=== PATIENT | female | born 1965 | race Caucasian/White ===

== ENCOUNTER 2017-02-08 10:25 | Day surgery (SDC) | payer BC ==
[2017-02-08] MEDS ORDERED: FENTANYL PF 100MCG/2ML VIAL IV ONE (10:26)
[2017-02-08] MEDS ORDERED: PROPOFOL 10 MG/ML VIAL IV ONE (10:26)
[2017-02-08] MEDS ORDERED: LIDOCAINE 2% MDV (20MG/ML) 20ML VIAL IV ONE (10:26)
--- NOTE | 2017-02-08 15:11 | Operative Note ---
DATE OF SURGERY: 02/08/2017 OPERATION: COLONOSCOPY to the cecum and terminal ileum with biopsy. INDICATION: Iron deficiency anemia, rule out primary colon pathology. ANESTHESIA: Intravenous sedation was administered by the department of anesthesiology and included Diprivan titrated to effect. PROCEDURE: Following informed consent from this alert individual including a discussion of the risks and benefits of the procedure and an opportunity for the patient to ask questions, the patient was in the left lateral decubitus position. A digital rectal examination was performed. No abnormalities were noted. Following this, the Olympus [id number] video colonoscope was inserted into the rectum without resistance. The distal rectal mucosa was inflamed with hyperemia and some friable mucosa. No large ulcerations were noted. No polyps were seen. The endoscope was then advanced up through the bowel to the level of the cecum without much difficulty. Throughout the bowel, the mucosa otherwise was unremarkable without ulcerations, erosions noted. The mucosal pattern was normal with normal folds and distensibility. The cecum was well defined by noting the appendiceal orifice and ileocecal valve. The terminal ileum was cannulated for approximately 10 cm and found to be completely normal. In the cecum, the colonoscope was retroflexed and no changes were noted. From the cecum, the colonoscope was then slowly withdrawn back through the bowel, reexamining the mucosa upon withdrawal. Again the mucosa was normal until the distal rectum was reached. There it was noted to have a somewhat hyperemic appearance and for this reason, biopsies were taken from the distal rectum. Small internal hemorrhoids were also noted. The endoscope was straightened and removed. The patient tolerated the procedure well and was returned to the recovery area in stable condition. IMPRESSION: 1. Normal terminal ileum. 2. Very mild distal proctitis with a friable mucosa. 3. Small internal hemorrhoids. RECOMMENDATIONS: Further recommendations will be forthcoming pending results of biopsy obtained today. Followup will also be with Dr. Pinedo. As always, thank you for allowing me to participate in the care of your patient. CC: Familia PENN
--- NOTE | 2017-02-08 15:11 | Operative Note ---
DATE OF SURGERY: 02/08/2017 OPERATION: ESOPHAGOGASTRODUODENOSCOPY with multiple biopsies. INDICATION: Iron deficiency anemia. HISTORY: The patient was informed while trying to donate platelets that her blood count was low and she was, in fact, low on iron. Hemoglobin was 10.7 and ferritin was 18.9 one month ago. She presents today for both upper and lower endoscopy. ANESTHESIA: Intravenous sedation was administered by the department of anesthesiology and included Diprivan titrated to effect. PROCEDURE: Following informed consent from this alert individual, including a discussion of the risks and benefits of the procedure and an opportunity for the patient to ask questions, the patient was in the left lateral decubitus position. The Olympus [id number] video endoscope was inserted into the esophagus without resistance. The proximal esophagus had a normal appearance with normal folds and distensibility. The mid esophagus likewise was free from changes. The distal esophageal segment demonstrated severe ulcerations circumferentially around the distal 3-4 cm of the esophagus with markedly friable spontaneously bleeding mucosa. Below this was a small 2-3 cm hiatal hernia sac which was free from mucosal changes. The subdiaphragmatic stomach was entered and found to be normal. Pylorus was patent. Duodenal bulb, sweep, and descending duodenum were examined in a serial fashion and found to be unremarkable. The endoscope was then drawn back into the body of the stomach. Retroflexion accomplished following air insufflation again revealed a hiatal hernia. The endoscope was then straightened. Sample biopsies were taken from the duodenum from the duodenal bulb and second portion of the duodenum to evaluate for possible celiac sprue and malabsorption. A second set of biopsies was taken upon withdrawal from the distal esophageal segment which again was extremely friable and ulcerated. The mid and proximal esophagus were normal. The endoscope was removed. The patient tolerated the procedure well and was returned to the recovery area in stable condition. IMPRESSION: 1. Severely ulcerated distal esophagitis as described above, biopsies taken. 2. Small hiatal hernia. 3. Biopsies taken from a normal-appearing duodenum. RECOMMENDATION: The patient will be started on Prilosec 20 mg twice daily. She should have recheck endoscopy in 8-10 weeks to assess healing. Further recommendations forthcoming pending results of biopsy. Colonoscopy will also be performed at this time. As always, thank you for allowing me to participate in the care of your patient. CC: HECTOR AVENDAÑO D.O. DEXTER
== END 2017-02-08 13:10 | disposition home or self-care (01) ==
LOC: HOP 10:25
PROVIDERS: ATTEND Internal Medicine Gastroenterology
DX: D50.9 Iron deficiency anemia, unspecified (principal); F32.9 Major depressive disorder, single episode, unspecified; K62.89 Other specified diseases of anus and rectum; K64.8 Other hemorrhoids; K22.11 Ulcer of esophagus with bleeding; K44.9 Diaphragmatic hernia without obstruction or gangrene
CPT/HCPCS: 45380; 43235; 00810; J3010

== ENCOUNTER 2017-04-19 08:01 | Day surgery (SDC) | payer BC ==
[2017-04-19] MEDS ORDERED: FENTANYL PF 100MCG/2ML VIAL IV ONE (08:02)
[2017-04-19] MEDS ORDERED: PROPOFOL 10 MG/ML VIAL IV ONE (08:02)
[2017-04-19] MEDS ORDERED: LIDOCAINE 2% MDV (20MG/ML) 20ML VIAL IV ONE (08:02)
--- NOTE | 2017-04-19 13:10 | Operative Note ---
DATE OF SURGERY: 04/19/2017 OPERATION: ESOPHAGOGASTRODUODENOSCOPY with multiple biopsies. INDICATION: Previously noted endoscopy with esophageal ulcerations. The patient returns at this time to assess healing. Clinically she is improved. ANESTHESIA: Intravenous sedation was administered by the department of anesthesiology and included Diprivan titrated to effect. PROCEDURE: Following informed consent from this alert individual, including a discussion of the risks and benefits of the procedure and an opportunity for the patient to ask questions, the patient was in the left lateral decubitus position. The Olympus [id number] video endoscope was inserted into the esophagus without resistance. The proximal esophagus had a normal appearance with normal folds and distensibility. The mid esophagus likewise was free from changes. At the squamocolumnar junction, there was inflammatory change noted with some superficial erosion and erythema but the ulcerations had significantly improved from previous endoscopy. Biopsies were ultimately taken from the GE junction. There was a 2.5 cm hiatal hernia noted as well which was free from mucosal changes. Subdiaphragmatic stomach was entered and found to be normal. The pylorus was patent. The duodenal bulb, sweep and descending duodenum were examined in a serial fashion and found to be normal. The instrument was then withdrawn back into the body of the stomach. Retroflexion accomplished following air insufflation failed to demonstrate any additional changes except for the hiatal hernia. The endoscope was then straightened and withdrawn. Again, biopsies were taken from the GE junction. After this, the endoscope was then withdrawn back through an otherwise normal esophagus and removed from the patient. She tolerated the procedure well and was returned to the recovery area in stable condition. IMPRESSION: 1. Improved upper endoscopy with healing mucosa at the GE junction with some mild erosive changes noted only and some slight irregularity of the squamocolumnar junction. Biopsies were taken. 2. A 2.5 cm hiatal hernia. RECOMMENDATION: Further recommendations will be forthcoming pending results of biopsies obtained today. The patient will continue on acid blockade therapy. Followup will be with Dr. Pinedo. As always, thank you for allowing me to participate in the care of your patient. CC: Familia PENN
== END 2017-04-19 09:52 | disposition home or self-care (01) ==
LOC: HOP 08:01
PROVIDERS: ATTEND Internal Medicine Gastroenterology
DX: K22.10 Ulcer of esophagus without bleeding (principal); K44.9 Diaphragmatic hernia without obstruction or gangrene; K21.9 Gastro-esophageal reflux disease without esophagitis
CPT/HCPCS: 43235; 00731; J3010

== ENCOUNTER 2018-05-23 12:05 | Day surgery (SDC) | payer BC ==
[2018-05-23] MEDS ORDERED: LIDOCAINE 2% MDV (20MG/ML) 20ML VIAL IV ONE (12:06)
[2018-05-23] MEDS ORDERED: FENTANYL PF 100MCG/2ML VIAL IV ONE (12:06)
[2018-05-23] MEDS ORDERED: PROPOFOL 10 MG/ML VIAL IV ONE (12:06)
--- NOTE | 2018-05-24 12:31 | Operative Note ---
DATE OF SURGERY: 05/23/2018 OPERATION: ESOPHAGOGASTRODUODENOSCOPY WITH MULTIPLE BIOPSIES INDICATION: Short-segment Zamora's esophagus, prior history of esophageal ulcerations. The patient returns at this time for surveillance. Intravenous sedation was administered by the Department of Anesthesiology and included Diprivan titrated to effect. PROCEDURE: Following informed consent from this alert individual, including a discussion of the risks and benefits of the procedure and then opportunity for the patient to ask questions, the patient was in the left lateral decubitus position. The Olympus GIF 180 video endoscope was inserted in the esophagus without resistance. The proximal esophagus had a normal appearance with normal folds and distensibility. The distal esophagus demonstrated some very slight irregularities in the squamocolumnar junction, sitting above a 2 cm hiatal hernia. Multiple biopsies were taken from the GE junction to again assess for Zamora's epithelium and dysplasia. The hernia sac itself was free from changes. The subdiaphragmatic stomach was likewise unremarkable. The pylorus was patent. The duodenal bulb, sweep, and descending duodenum were examined in a serial fashion and found to be normal. The instrument was then withdrawn back into the body of the stomach, retroflexion accomplished following air insufflation, failed to demonstrate any changes. The endoscope was then straightened and withdrawn after biopsies were taken and removed from the patient. She tolerated the procedure well and was returned to the recovery area in stable condition. IMPRESSION: 1. Slight irregularity of the squamocolumnar junction, suggestive of short segment Zamora's esophagus. Biopsies taken. 2. Small 2 cm hiatal hernia. RECOMMENDATIONS: The patient was advised to continue with her current medical regimen. Further recommendations forthcoming pending results of biopsy. Followup will be with Dr. Armando Pinedo. CC: Familia PENN
== END 2018-05-23 14:10 | disposition home or self-care (01) ==
LOC: HOP 12:05
PROVIDERS: ATTEND Internal Medicine Gastroenterology
DX: K22.70 Barrett's esophagus without dysplasia (principal); Z87.19 Personal history of other diseases of the digestive system; K44.9 Diaphragmatic hernia without obstruction or gangrene; K21.9 Gastro-esophageal reflux disease without esophagitis

== ENCOUNTER 2019-03-21 07:53 | Emergency (ER) | payer BC ==
--- NOTE | 2019-03-21 08:36 | Emergency Department Record ---
History of Present Illness - General Chief complaint: Flank Pain Stated complaint: MIGHT HAVE A KIDNEY STONE Time Seen by Provider: 03/21/19 08:32 Source: Patient Mode of Arrival: Ambulatory Limitations: No limitations - History of Present Illness Initial comments: pt has l flank pain starting this am that feels like her previous kidney stones. the last one she had was 10yrs ago. pain is constant. she took a tylenol with codeine and it feels a little better Onset/Timin -: Hour(s) Consistency: Constant Improves with: None Worsens with: None Patient : No Associated Symptoms: Other - Related Data Home Medications Medication Instructions Recorded Confirmed Last Taken Bupropion HCl [Wellbutrin Xl] 150 mg PO DAILY 03/21/19 03/21/19 03/21/19 Ferrous Sulfate [Iron] 65 mg PO DAILY 03/21/19 03/21/19 03/21/19 Multivitamin [Daily Multiple 1 each PO DAILY 03/21/19 03/21/19 03/20/19 Vitamin] Allergies Allergy/AdvReac Type Severity Reaction Status Date / Time No Known Drug Allergies Allergy Unknown Verified 03/21/19 08:24 [NO KNOWN DRUG ALLERGIES] Travel Screening - Travel/Exposure Within Last 30 Days Have you traveled within the last 30 days?: No - Travel/Exposure Within Last Year Have you traveled outside the [place] in the last year?: No - Additonal Travel Details Have you been exposed to anyone with a communicable illness?: No - Travel Symptoms Symptom Screening: None Review of Systems Reviewed: No additional complaints except as noted below Constitutional: Reports: As per HPI. Denies: Chills, Fever, Malaise, Night sweats, Weakness, Weight change Eyes: Reports: As per HPI. Denies: Eye discharge, Eye pain, Photophobia, Vision change ENT: Reports: As per HPI. Denies: Congestion, Dental pain, Ear pain, Epistaxis, Hearing loss, Throat pain Respiratory: Reports: As per HPI. Denies: Cough, Dyspnea, Hemoptysis, Stridor, Wheezes Cardiovascular: Reports: As per HPI. Denies: Arrhythmia, Chest pain, Dyspnea on exertion, Edema, Murmurs, Orthopnea, Palpitations, Paroxysmal nocturnal dyspnea, Rheumatic Fever, Syncope Endocrine: Reports: As per HPI. Denies: Fatigue, Heat or cold intolerance, Polydipsia, Polyuria Gastrointestinal: Reports: As per HPI. Denies: Abdominal pain, Constipation, Diarrhea, Hematemesis, Hematochezia, Melena, Nausea, Vomiting Genitourinary: Reports: As per HPI. Denies: Abnormal menses, Discharge, Dyspareunia, Dysuria, Frequency, Hematuria, Incontinence, Retention, Urgency Musculoskeletal: Reports: As per HPI. Denies: Arthralgia, Back pain, Gout, Joint swelling, Myalgia, Neck pain Skin: Reports: As per HPI. Denies: Bruising, Change in color, Change in hair/nails, Lesions, Pruritus, Rash Neurological: Reports: As per HPI. Denies: Abnormal gait, Confusion, Headache, Numbness, Paresthesias, Seizure, Tingling, Tremors, Vertigo, Weakness Psychiatric: Reports: As per HPI. Denies: Anxiety, Auditory hallucinations, Depression, Homicidal thoughts, Suicidal thoughts, Visual hallucinations Hematological/Lymphatic: Reports: As per HPI. Denies: Anemia, Blood Clots, Easy bleeding, Easy bruising, Swollen glands Past Medical History - SOCIAL HISTORY Smoking Status: Former smoker Alcohol Use: None Drug Use: None - RESPIRATORY Hx Respiratory Disorders: No - CARDIOVASCULAR Hx Cardio Disorders: No Comment:: heart rate has been high 100's x 6 months - NEURO Hx Neuro Disorders: No - GI Hx GI Disorders: Yes Hx Abdominal Pain: No Hx Crohn's Disease: No Hx Reflux: Yes Hx Irritable Bowel: No Hx Nausea/Vomiting: No Comment:: constipation - Hx Genitourinary Disorders: Yes Hx Kidney Stones: Yes Comment:: hysterectomy - ENDOCRINE Hx Endocrine Disorders: Yes Hx Diabetes: No Hx Thyroid Disease: Yes - MUSCULOSKELETAL Hx Musculoskeletal Disorders: No - PSYCH Hx Psych Problems: Yes Hx Anxiety: Yes Hx Depression: Yes - HEMATOLOGY/ONCOLOGY Hx Hematology/Oncology Disorders: Yes Hx Anemia: Yes Hx Blood Transfusions: No Family Medical History Any Significant Family History?: No Hx Cancer: Mother *Cancer Comment: breast cancer Hx Heart Disease: Mother *Heart Comment: afib Hx Resp Disorders: Father *Resp Comment: asthma Physical Exam - General General Appearance: Alert, Oriented x3, Cooperative, Mild distress - Head Head exam: Normal inspection - Eye Eye exam: Normal appearance, PERRL, EOMI Pupils: Normal accommodation - ENT ENT exam: Normal exam, Mucous membranes moist, Normal external ear exam, Normal orophraynx Ear exam: Normal external inspection. negative: External canal tenderness Nasal Exam: Normal inspection. negative: Discharge, Sinus tenderness Mouth exam: Normal external inspection, Tongue normal Teeth exam: Normal inspection. negative: Dental caries Throat exam: Normal inspection. negative: Tonsillar erythema, Tonsillar exudate - Neck Neck exam: Normal inspection, Full ROM. negative: Tenderness - Respiratory Respiratory exam: Normal lung sounds bilaterally. negative: Respiratory distress - Cardiovascular Cardiovascular Exam: Regular rate, Normal rhythm, Normal heart sounds - GI/Abdominal GI/Abdominal exam: Soft, Normal bowel sounds. negative: Tenderness - Rectal Rectal exam: Deferred - exam: Deferred - Extremities Extremities exam: Normal inspection, Full ROM, Normal capillary refill. ne gative: Tenderness - Back Back exam: Reports: CVA tenderness (L), Full ROM. Denies: Muscle spasm, Rash noted, Tenderness - Neurological Neurological exam: Alert, Normal gait, Oriented X3, Reflexes normal - Psychiatric Psychiatric exam: Normal affect, Normal mood - Skin Skin exam: Dry, Intact, Normal color, Warm Course Vital Signs 03/21/19 08:14 Temperature 97.8 F Pulse Rate [ 91 H Pulse Ox Probe] Respiratory 20 Rate Blood Pressure 128/90 [Left Arm] Pulse Ox 97 - Reevaluation(s) Reevaluation #1: 03/21/19 10:05 pt feels better. Medical Decision Making - Lab Data Result diagrams: 03/21/19 08:47 03/21/19 08:47 Disposition Disposition: Discharge Clinical Impression: Flank pain Disposition: Home, Self-Care Condition: (1) Good Instructions: Flank Pain (ED) Additional Instructions: follow up with family doctor. return sooner if worse. motrin with food. Forms: Patient Portal Access Quality - Quality Measures Quality Measures: N/A - Blood Pressure Screening Does Patient Have Any of the Following: No Blood Pressure Classification: Hypertensive Reading Systolic Measurement: 128 Diastolic Measurement: 90 Screening for High Blood Pressure: < First Hypertensive BP, F/U Documented > [G8950] First Hypertensive Follow-up Interventions: Follow-up with rescreen GT 1 day and LT 4 weeks.
[2019-03-21] MEDS ORDERED: 0.9 % SODIUM CHLORIDE 1,000 ML BAG IV ONE (08:37)
[2019-03-21] MEDS ORDERED: KETOROLAC 30 MG/ML VIAL IVP ONE (08:37)
[2019-03-21 08:55] LABS: ABSOLUTE NEUTROPHIL COUNT 5.51; BASO % 0.4 % (0-6); EOS % 1.5 % (0-6); GRAN % 74.5 % (47-80); HEMATOCRIT 45.6 % (35.0-47.0); HEMOGLOBIN 14.6 gm/dl (11.6-16.0); MEAN CELL VOLUME 91.9 fl (81-97); MEAN CORPUSCULAR HEMOGLOBIN 29.4 pg (27-33); MEAN PLATELET VOLUME 9.1 fl (7.4-10.4); MONO % 7.6 % (0-9); PLATELET COUNT 236 K/uL (130-400); RED BLOOD COUNT 4.96 M/uL (3.80-5.40); RED CELL DISTRIBUTION WIDTH 13.7 % (11.5-14.5); WHITE BLOOD COUNT W/O DIFF 7.4 K/uL (4.2-12.2)
[2019-03-21 08:56] LABS: URINE APPEARANCE CLEAR; URINE BILIRUBIN NEGATIVE (NEGATIVE); URINE BLOOD NEGATIVE (NEGATIVE); URINE COLOR YELLOW; URINE GLUCOSE (UA) NEGATIVE (NEGATIVE); URINE KETONE NEGATIVE (NEGATIVE); URINE LEUKOCYTE ESTERASE NEGATIVE (NEGATIVE); URINE NITRITE NEGATIVE (NEGATIVE); URINE PROTEIN NEGATIVE (NEGATIVE); URINE UROBILINOGEN 0.2 E.U./dL (0.20 - 1.00)
[2019-03-21 09:09] LABS: BLOOD UREA NITROGEN 17 mg/dL (6-20); CREATININE 0.9 mg/dL (0.5-0.9); EST GLOMERULAR FILTRATION RATE > 60 mL/min
[2019-03-21 09:12] LABS: GLUCOSE,RANDOM 119 mg/dL (74-109)
--- NOTE | 2019-03-21 09:49 | CT SCAN REPORT ---
EXAMINATION: CT Abdomen and Pelvis without IV Contrast EXAM DATE: 03/21/2019 9:12 AM TECHNIQUE: Standard protocol CT imaging of the abdomen and pelvis was performed without intravenous c ontrast. INDICATION: l flank pain COMPARISON: None ENCOUNTER: Not applicable CT ABDOMEN AND PELVIS FINDINGS: Lung Bases: Mild dependent atelectasis. Hepatobiliary: The liver has a normal size with a smooth surface. No gallstones or gallbladder wall thickening. Pancreas: The pancreas is normal. Spleen: The spleen is not enlarged. Adrenals: The adrenal glands are normal. Kidneys, Ureters, & Bladder: Both kidneys have a normal size and morphology. There is no hydronephro sis. No renal stones. Both ureters have a normal course and caliber and the urinary bladder a normal morphology and uniform wall thickness. No ureteral or bladder calculi are identified. Gastrointestinal: The stomach and small bowel are normal with no obstruction or inflammation. Appendi x is not well seen. No evidence of acute appendicitis. Moderate stool in the colon. No bowel dilatati on. Reproductive Organs: Unremarkable Lymphatic System: There is no adenopathy within the abdomen or pelvis. Vasculature: Normal caliber abdominal aorta Peritoneum: No free fluid, free air, or inflammation Abdominal wall & Musculoskeletal: No suspicious bone lesions. Mild levoconvex curvature of the lumbar spine. Small fat-containing umbilical hernia. Assessment of the solid organs, soft tissues, and vascular structures is overall limited on noncontra st imaging, IMPRESSION: 1. No free air, free fluid or significant inflammation. 2. No renal or ureteral stones. 3. No hydronephrosis on either side. Dictated by: Ricardo Recio MD on 03/21/2019 9:32 AM. .
== END 2019-03-21 10:24 | disposition home or self-care (01) ==
LOC: ER 07:53
DX: R10.31 Right lower quadrant pain (principal); Z87.442 Personal history of urinary calculi; Z87.891 Personal history of nicotine dependence
CPT/HCPCS: 74176; 80048; 81003; 85025; 96374; 99284; J1885; J7030